=== PATIENT | male | born 1995 | race Caucasian/White ===

== ENCOUNTER → 2023-04-02 | Emergency (ER) | payer OTHER ==
[~2023-04-02] VITALS: Ht 175.3 cm; Wt 99.8 kg
[~2023-04-02] MED LIST: BUSPIRONE HCL10 MG; CANABIS MEDICINAL; DEPAKOTE ER500 MG
== END | disposition left against medical advice (07) ==
LOC: ER 13:18
DX: S91.341A Puncture wound with foreign body, right foot, initial encounter (principal); W26.8XXA Contact with other sharp object(s), not elsewhere classified, initial encounter; Y93.89 Activity, other specified; Y92.89 Other specified places as the place of occurrence of the external cause
CPT/HCPCS: 73630; 96372; 99284; J0696; J1885

== ENCOUNTER 2023-12-28 09:10 | Emergency (ER) | payer OTHER ==
[~2023-12-28] VITALS: Ht 175.3 cm; Wt 88.0 kg
[2023-12-28 10:40] LABS: HEMATOCRIT 47.9 % (39.0-48.0); HEMOGLOBIN 16.3 g/dL (13-16.00); MEAN CELL VOLUME 88.1 fL (80.0-100.00); MEAN CORPUSCULAR HEMOGLOBIN 29.9 pg (27.00-32.0); PLATELET COUNT 383 K/uL (150-450); RED BLOOD COUNT 5.44 M/uL (4.00-6.00); RED CELL DISTRIBUTION WIDTH 14.3 % (11.5-14.5)
[2023-12-28 11:12] LABS: ALBUMIN 4.5 gm/dL (3.4-5.0); BILIRUBIN TOTAL 0.44 mg/dL (0.3-1.2); CALCIUM 9.9 mg/dL (8.5-10.1); CREATININE SERUM 1.23 mg/dL (0.70-1.30); GFR 70.07; GLOBULINA 3.9 G/DL (2.4-3.5); POTASSIUM 3.56 mEq/L (3.5-5.1); TOTAL PROTEIN 8.4 gm/dL (6.4-8.2)
== END 2023-12-28 17:15 | disposition home or self-care (01) ==
LOC: ER 09:11
PROVIDERS: General Practice
DX: M79.603 Pain in arm, unspecified (principal)